=== PATIENT | female | born 1990 | race Caucasian/White ===

== ENCOUNTER 2024-08-10 07:27 | Emergency (ER) | payer BC, SELFPAY ==
[2024-08-10 08:00] VITALS: BP 113/78; PULSE 102; RESP 16; TEMP 36.8; O2SAT 99; BMI 42.5
--- NOTE | 2024-08-10 08:01 | EKG_ITS ---
[facility] Test Date: 2024-08-10 Pat Name: CAMILLE WARE Department: Room: - Gender: Female Laboratory Clerk: : 1990 Requested By: Nataliia Roe ([facility]) Shivani Order Number: [id number] Reading MD: Nataliia Roe ([facility]) Shivani Measurements Intervals [place] Rate: 96 P: 22 WA: 157 QRS: 10 QRSD: 81 T: 19 QT: 324 QTc: 411 Interpretive Statements SINUS RHYTHM MODERATE VOLTAGE CRITERIA FOR LVH, CONSIDER NORMAL VARIANT [MEETS CRITERIA IN ONE OF: R(aVL), S(V1), R(V5), R(V5/V6)+S(V1)] No previous ECG available for comparison /store/S0/[id number]/ecg/[id number].pdf
--- NOTE | 2024-08-10 08:02 | PD.EDRME ---
Rapid Medical Screening Exam RME Arrival date/time: 08/10/24 07:27 34-year-old female with complaints of dizziness, vomiting and shortness of breath that began at 2 AM. She does report she is 32 weeks of gestation denies abdominal pain vaginal bleeding. I have greeted and performed a focused initial assessment of this patient. Initial appropriate labs ordered at this time. A comprehensive ED assessment and evaluation of the patient and analysis of all test and completion of medical decision making process will be conducted by additional ED provider. Chief Complaint: Nausea/Vomiting/Diarrhea Time Seen by Provider: 08/10/24 07:45 Vital signs: Vital Signs Temperature 98.2 F 08/10/24 08:00 Pulse Rate 102 H 08/10/24 08:00 Respiratory Rate 16 08/10/24 08:00 Blood Pressure 113/78 08/10/24 08:00 Pulse Oximetry (%) 99 08/10/24 08:00 Oxygen Delivery Method Room Air 08/10/24 08:00
[2024-08-10] MEDS: MECLIZINE HCL 25 MG TABLET PO (08:29)
[2024-08-10 08:51] LABS: Collection Type, Urine Clean Catch
[2024-08-10 09:00] LABS: Basophils % (Auto) 0 % (0-2.5); Eosinophils # (Auto) 0.1 Thou/mm3 (0.0-0.5); Eosinophils % (Auto) 1 % (0-10); Hematocrit 36.1 % (36.0-46.0); Hemoglobin 12.2 g/dL (12.0-16.0); Immature Granulocytes % (Auto) 1 % (0-0); Immature Granulocytes Auto 0.11 Thou/mm3 (0.00-0.00); Lymphocytes # (Auto) 1.6 Thou/mm3 (1.0-4.8); Lymphocytes % (Auto) 12 % (10-50); Mean Corpuscular HGB Conc 33.8 g/dl (31.0-37.0); Mean Corpuscular Hemoglobin 28.5 pg (25.0-35.0); Mean Corpuscular Volume 84 fL (80-100); Monocytes # (Auto) 0.7 Thou/mm3 (0.0-0.8); Monocytes % (Auto) 5 % (0-12); Neutrophils # (Auto) 10.7 Thou/mm3 (1.8-7.7); Neutrophils % (Auto) 81 % (37-80); Nucleated Red Blood Cell % 0 /100 WBC (0); Platelet Count 228 Thou/mm3 (140-440); RDW Standard Deviation 43.3 fL (36.4-46.3); Red Blood Count 4.28 Miln/mm3 (4.00-5.20); White Blood Count 13.3 Thou/mm3 (3.6-11.0)
[2024-08-10 09:06] LABS: INR 0.9 (0.9-1.3); Prothrombin Time 10.4 Seconds (9.0-12.2)
[2024-08-10 09:07] LABS: Bacteria,Urine 3+; Bilirubin,Urine Negative (Negative); Blood,Urine Negative (Negative); Color,Urine Yellow (Lt Yel-Yel); Glucose, Urine Negative (Negative); Hyaline Casts,Urine < 1 /hpf (0-1); Ketones,Urine 1+ (Negative); Leukocyte Esterase,Urine Positive (Negative); Nitrite,Urine Negative (Negative); PH,Urine 8.5 (5.0-7.0); Protein,Urine 1+ (Neg - Trace); RBC,Urine 4 /hpf (0-3); Specific Gravity,Urine 1.023 (1.001-1.035); Squamous Epithelial Cell,Urine 7 /hpf (0-5); Urobilinogen,Urine Negative mg/dL (0.0-1.0); WBC,Urine 10 /hpf (0-5)
[2024-08-10 09:11] LABS: Clarity,Urine Hazy (Clear/Hazy)
[2024-08-10 09:12] LABS: Anion Gap 9 (7-16); BUN/Creatinine Ratio 12 Ratio (12-20); Blood Urea Nitrogen 7 mg/dL (9-23); Carbon Dioxide 24.5 mMol/L (20.0-31.0); Chloride 102 mMol/L (98-107); Creatinine (Component) 0.6 mg/dL (0.6-1.3); Potassium 3.8 mMol/L (3.4-5.1); Sodium 135 mMol/L (136-145)
[2024-08-10 09:13] LABS: Alanine Aminotransferase 56 U/L (10-49); Albumin, Serum 4.5 gm/dL (3.5-5.0); Albumin/Globulin Ratio 1.7 (1.2-2.2); Alkaline Phosphatase 85 U/L (46-116); Aspartate Amino Transferase 39 U/L (0-34); Bilirubin,Total 0.3 mg/dL (0.3-1.2); Calcium 9.7 mg/dL (8.3-10.6); Calcium (Corrected) 9.7 mg/dL (8.5-10.1); Globulin 2.7 gm/dL (2.3-3.5); Glucose 103 mg/dL (74-106); Osmolality,Calculated 268 (275-295); Total Protein 7.2 gm/dL (5.7-8.2); Troponin I < 0.002 ng/mL (0.0-0.045); eGFR > 60 See Note
[2024-08-10 09:23] LABS: D-Dimer 805 ng/mL (<600)
[2024-08-10 11:29] VITALS: BP 124/77; PULSE 109; RESP 18; TEMP 37; O2SAT 97
--- NOTE | 2024-08-10 11:50 | EDNOTE_ITS ---
<Statement entered by Bouchra Tovar MD - 08/10/24 17:07> As co-signing physician, I was present and available for consult prn. I concur with the plan and care as documented by the midlevel provider. ED General RME/HPI General Chief complaint: Nausea/Vomiting/Diarrhea Stated complaint: Vomiting, SOB, dizzy Time Seen by Provider: 08/10/24 07:45 Arrival date/time: 08/10/24 07:27 RME / HPI RME / HPI narrative: 34-year-old female patient, 1 para 0, about 33 weeks , came in for evaluation regarding dizziness. Patient's been having dizziness, that started around 2 AM today, associated with vomiting and shortness of breath. Patient denies any abdominal pain. Denies any diarrhea. Denies any vaginal bleeding or spotting. Patient denies any fever also. Denies any cough. No medications taken prior travel. Related Data Previous Rx's ?Medication ?Instructions ?Recorded cephalexin 500 mg capsule 500 mg PO TID 7 days #21 caps 08/10/24 Allergies Allergy/AdvReac Type Severity Reaction Status Date / Time ciprofloxacin [From Cipro] Allergy Hives Verified 05/14/24 03:26 No Known Allergies Allergy Unknown Uncoded 10/02/09 02:50 Review of Systems Review of Systems Narrative Review of Systems: Review of system reviewed and within normal limits except mentioned in HPI ED Exam Narrative Physical exam: VITAL SIGNS: Reviewed. GENERAL APPEARANCE: Alert and interactive, follows commands, no acute distress, HEAD AND FACE: Non-traumatic. ENT: PERRL, pink conjunctivitis, eyelid no trauma, Mucous membrane moist. NECK: Supple, nontender, no nuchal rigidity. CHEST: No tenderness, no crepitus, no paradoxical movement, no retractions. LUNGS: Clear, well ventilated, symmetric, no rales, no wheezing, no ronchi, no stridor, good breath sounds bilaterally. HEART: Regular rate, regular rhythm, no murmur, no gallops. ABDOMEN: Soft, positive bowel sounds, nondistended, no guarding, nontender, no rebound, no masses, RECTAL: Deferred. GENITAL: Deferred. NEUROLOGICAL: Gross motor function intact sensory function intact, Appropriate for age. MUSCULOSKELETAL: low back nontender, full range of motion. EXTREMITIES: Nontender, full range of motion. SKIN: Color pink, dry, no rash, no lacerations, no abrasions, no contusions. LYMPHATICS: Deferred. Course Quality Measures none Orders Category Date Time Status Bedside COVID-19 Antigen Test NOW Care 08/10/24 07:59 Active EKG (ED ONLY) *Do not use* NOW Care 08/10/24 08:01 Completed EKG (ED Only) Stat Exams 08/10/24 08:01 Draft CBC Stat Lab 08/10/24 08:40 Completed CMP [Comprehensive Metabolic Panel] Stat Lab 08/10/24 08:40 Completed D-Dimer Stat Lab 08/10/24 08:40 Completed FLU A&B [Influenza A & B Rapid Panel] Stat Lab 08/10/24 08:00 Ordered PT [Prothrombin Time with INR] Stat Lab 08/10/24 08:40 Completed Troponin I Stat Lab 08/10/24 08:40 Completed Urinalysis Stat Lab 08/10/24 08:40 Completed Acetaminophen Tab [Tylenol ES Tab] Med 08/10/24 11:49 Discontinued 1,000 mg PO X1 ONE Meclizine HCl [Antivert] Med 08/10/24 08:01 Discontinued 25 mg PO X1 ONE Sodium Chloride 0.9% 1000 ml [Ns] 1,000 ml Med 08/10/24 11:49 Discontinued IV 999 mls/hr cefTRIAXone/D5w 1gm IV premix [Rocephin/D5w 1gm IV Med 08/10/24 11:50 Discontinued premix] 50 ml IV X1 Vital Signs Vital signs: Vital Signs Temperature 98.2 F 08/10/24 08:00 Pulse Rate 102 H 08/10/24 08:00 Respiratory Rate 16 08/10/24 08:00 Blood Pressure 113/78 08/10/24 08:00 Pulse Oximetry (%) 99 08/10/24 08:00 Oxygen Delivery Method Room Air 08/10/24 08:00 [facility] Patient data External records reviewed:: None Clinical information provided by:: patient Social determinants that could affect healthcare access:: none Patient has the following chronic illnesses:: History of blood disorder How is presenting disease/condition affected by chronic disease/condition?: u neffected by Evaluation data The following diagnostics were reviewed and interpreted by me:: lab results, radiology exam(s) and EKG tracing(s) Lab and/or radiology exams considered but not ordered:: None Interpretation Summary: EKG as interpreted by me showed sinus rhythm, ventricular rate of 96 bpm,No ST segment elevation depression noted. Laboratory workup is significant for a leukocytosis of 13.3 urinalysis positive UTI . Medications Medications considered but not ordered:: None Medication administrations:: Medication Administration History Discontinued Medications Acetaminophen (Acetaminophen 500 Mg Tablet) 1,000 mg PO X1 ONE Stop: 08/10/24 11:50 Last Admin: 08/10/24 12:12 Dose: 1,000 mg Documented By: KARUNA Sodium Chloride (Ns) 1,000 mls @ 999 mls/hr IV .Q1H1M ONE Stop: 08/10/24 12:49 Last Admin: 08/10/24 12:15 Dose: 999 mls/hr Documented By: KARUNA Ceftriaxone Sodium/Dextrose (Rocephin/D5w 1gm Iv Premix) 50 mls @ 100 mls/hr IV X1 ONE Stop: 08/10/24 12:19 Last Admin: 08/10/24 12:12 Dose: 100 mls/hr Documented By: KARUNA Meclizine HCl (Meclizine Hcl 25 Mg Tablet) 25 mg PO X1 ONE Stop: 08/10/24 08:02 Last Admin: 08/10/24 08:29 Dose: 25 mg Documented By: KENDRA Ceftriaxone IM, meclizine, IV fluids for hydration Consultations Consultation(s) initiated? (list below): No Diagnosis Differential Diagnosis ED Complaint MDM: Dizziness, UTI, Most likely diagnosis given after review of the tests above:: Dizziness, UTI Admission Indicated Admission indicated?: not indicated Explain why admission is indicated or not indicated:: Stable Admission Request Was there a request for admission?: No Disposition Plan Disposition Plan: Discharge Discharge Attestation Discharge Attestation: The patient and all family members were given an opportunity to ask questions and understood the discharge instructions. Discharge instructions specifically effects, indications for sooner follow up or return to the emergency department, and the expected course of current diagnosis. Patient condition: Stable Medical Decision Making MDM Narrative MDM Narrative: 34-year-old female patient, 1 para 0, about 33 weeks , came in for evaluation regarding dizziness. Patient's been having dizziness, that started around 2 AM today, associated with vomiting and shortness of breath. Patient denies any abdominal pain. Denies any diarrhea. Denies any vaginal bleeding or spotting. Patient denies any fever also. Denies any cough. No medications taken prior travel. Differential Diagnosis Differential Diagnosis: Dizziness, UTI, Lab Data 08/10/24 08:40 08/10/24 08:40 Labs: Lab Results 08/10/24 Range/Units 08:40 WBC 13.3 H (3.6-11.0) Thou/mm3 RBC 4.28 (4.00-5.20) Miln/mm3 Hgb 12.2 (12.0-16.0) g/dL Hct 36.1 (36.0-46.0) % MCV 84 (80-100) fL MCH 28.5 (25.0-35.0) pg MCHC 33.8 (31.0-37.0) g/dl RDW Std Deviation 43.3 (36.4-46.3) fL Plt Count 228 (140-440) Thou/mm3 Neut % (Auto) 81 H (37-80) % Lymph % (Auto) 12 (10-50) % [place] % (Auto) 5 (0-12) % Eos % (Auto) 1 (0-10) % Baso % (Auto) 0 (0-2.5) % Neut # (Auto) 10.7 H (1.8-7.7) Thou/mm3 Lymph # (Auto) 1.6 (1.0-4.8) Thou/mm3 [place] # (Auto) 0.7 (0.0-0.8) Thou/mm3 Eos # (Auto) 0.1 (0.0-0.5) Thou/mm3 Baso # (Auto) 0.0 (0.0-0.2) Thou/mm3 Immature Gran # (Auto) 0.11 H (0.00-0.00) Thou/mm3 Absolute Nucleated RBC 0.00 (0.00-0.00) Thou/mm3 Immature Gran % 1 H (0-0) % Nucleated RBC % 0 (0) /100 WBC PT 10.4 (9.0-12.2) Seconds INR 0.9 (0.9-1.3) D-Dimer 805 H (<600) ng/mL Sodium 135 L (136-145) mMol/L Potassium 3.8 (3.4-5.1) mMol/L Chloride 102 (98-107) mMol/L Carbon Dioxide 24.5 (20.0-31.0) mMol/L Anion Gap 9 (7-16) BUN 7 L (9-23) mg/dL Creatinine 0.6 (0.6-1.3) mg/dL Estim Creat Clear Calc 180.0 (>60) mL/min eGFR > 60 (60 - ) See Note BUN/Creatinine Ratio 12 (12-20) Ratio Glucose 103 (74-106) mg/dL Calculated Osmolality 268 L (275-295) Calcium 9.7 (8.3-10.6) mg/dL Corrected Calcium 9.7 (8.5-10.1) mg/dL Total Bilirubin 0.3 (0.3-1.2) mg/dL AST 39 H (0-34) U/L ALT 56 H (10-49) U/L Alkaline Phosphatase 85 (46-116) U/L Troponin I < 0.002 (0.0-0.045) ng/mL Total Protein 7.2 (5.7-8.2) gm/dL Albumin 4.5 (3.5-5.0) gm/dL Globulin 2.7 (2.3-3.5) gm/dL Albumin/Globulin Ratio 1.7 (1.2-2.2) Ur Collection Type Clean Catch Urine Color Yellow (Lt Yel-Yel) Urine Clarity Hazy (Clear/Hazy) Urine pH 8.5 H (5.0-7.0) Ur Specific [place] 1.023 (1.001-1.035) Urine Protein 1+ A (Neg - Trace) Urine Glucose (UA) Negative (Negative) Urine Ketones 1+ A (Negative) Urine Blood Negative (Negative) Urine Nitrite Negative (Negative) Urine Bilirubin Negative (Negative) Urine Urobilinogen (Auto) Negative (0.0-1.0) mg/dL Ur Leukocyte Esterase Positive (Negative) Urine RBC 4 H (0-3) /hpf Urine WBC 10 H (0-5) /hpf Ur Squamous Epith Cells 7 H (0-5) /hpf Urine Bacteria 3+ A (None) Hyaline Casts < 1 (0-1) /hpf Discharge Plan Plan Patient Disposition: HOME (Self Care) Disposition Comment: stable Prescriptions/Referrals Prescriptions/Med Rec: New cephalexin 500 mg capsule 500 mg PO TID 7 Days Qty: 21 0RF Referrals: Bouchra Love FNP [Primary Care Provider] - In 1 week Problem List Clinical Impression: UTI (urinary tract infection), , Dizziness Patient/Caregiver Discharge Instructions Discharge Activity: activity as tolerated Education Materials: Understanding Urinary Tract ... Additional Instructions: Thank you for the opportunity for serving you today. You are stable for discharged . You are advised to: Follow-up with your [facility] today Return to ED for worsening of symptoms Increase oral fluids Take medication as prescribed Print Language: Com[place]an Stand Alone Forms: Monica Award Info., Patient Portal Info Letter PA/DOCTOR OF NURSING PRACTICE Supervising Physician TOMY/ADAM Supervising Physician: MD La
[2024-08-10] MEDS: ACETAMINOPHEN 500 MG TABLET 1000 MG PO (12:12)
[2024-08-10] MEDS: cefTRIAXone/D5w 1gm IV premix 50 ML IV (12:12)
[2024-08-10] MEDS: SODIUM CHLORIDE 0.9% 1000 ML 1,000 ML 999 ML IV (12:15)
[2024-08-10 12:45] VITALS: BP 124/85; PULSE 97; RESP 18; TEMP 36.7; O2SAT 97
[2024-08-10 13:56] VITALS: BP 126/88; PULSE 89; RESP 18; TEMP 36.7; O2SAT 98
== END 2024-08-10 13:59 | disposition home or self-care (01) ==
PROVIDERS: Nurse Practitioner Primary Care; Emergency Provider Emergency Medicine; PCP Nurse Practitioner Family
DX: O23.43 Unspecified infection of urinary tract in pregnancy, third trimester (principal); N39.0 Urinary tract infection, site not specified; O26.893 Other specified pregnancy related conditions, third trimester; R42 Dizziness and giddiness; Z3A.33 33 weeks gestation of pregnancy
CPT/HCPCS: 36415; 80053; 81001; 84484; 85025; 85379; 85610; 85730; 87400; 87502; 87811; 93005; 99284; J0696; J7030; A9270

== ENCOUNTER → 2024-08-23 | Outpatient (CLI) | payer BC, SELFPAY | END | disposition home or self-care (01) | LOC: SLDO 12:10 | PROVIDERS: PCP Nurse Practitioner Family; Referring Provider Nurse Practitioner Family; Visit Provider Nurse Practitioner Family | DX: N30.00 Acute cystitis without hematuria (principal) | CPT/HCPCS: 87077; 87086; 87186 ==

== ENCOUNTER → 2025-05-30 | Outpatient (CLI) | payer BC, SELFPAY | END | disposition home or self-care (01) | LOC: SLDO 14:56 | PROVIDERS: PCP Physician Assistant; Referring Provider Physician Assistant; Visit Provider Physician Assistant | DX: N39.0 Urinary tract infection, site not specified (principal) | CPT/HCPCS: 87086 ==